=== PATIENT | male | born 1950 | race Caucasian/White ===

== ENCOUNTER 2021-11-08 17:33 | Observation (INO) | payer MEDICARE ==
[~2021-11-08] VITALS: Ht 172.7 cm; Wt 96.0 kg
[2021-11-08 17:53] LABS: BASOPHILS % (AUTO) 0 % (0-10); EOSINOPHILS % (AUTO) 0 % (0-10); HEMATOCRIT 41 % (40-54); HEMOGLOBIN 14.7 g/dL (13.3-17.7); LYMPHOCYTES # (AUTO) 2.1 10^3/uL (1.0-4.0); LYMPHOCYTES % (AUTO) 20 % (12-44); MEAN CORPUSCULAR HEMOGLOBIN 31 pg (25-34); MEAN CORPUSCULAR HGB CONC 36 g/dL (32-36); MEAN CORPUSCULAR VOLUME 88 fL (80-99); MEAN PLATELET VOLUME 10.1 fL (9.0-12.2); MONOCYTES # (AUTO) 0.7 10^3/uL (0.0-1.0); MONOCYTES % (AUTO) 7 % (0-12); NEUTROPHILS # (AUTO) 7.4 10^3/uL (1.8-7.8); NEUTROPHILS % (AUTO) 72 % (42-75); PLATELET COUNT 229 10^3/uL (130-400); WHITE BLOOD COUNT 10.2 10^3/uL (4.3-11.0)
--- NOTE | 2021-11-08 17:55 | ED Cardiac General ---
History of Present Illness General Chief Complaint: Cardiac/General Problems Stated Complaint: SOB,LIGHTHEADED, CHEST TIGHTNESS Source: patient Exam Limitations: no limitations (CAROLINE COBOS APRN) History of Present Illness Date Seen by Provider: Nov 08, 2021 Time Seen by Provider: 17:50 Initial Comments To ER with an abnormal sensation in his chest that he states is not pain or pressure, it just feels different. This began at about 1 PM today. He also feels a little lightheaded and short of breath. No history of this. He has a history of hypertension managed with lisinopril and hyperlipidemia managed with atorvastatin. Primary care is Dr. Irving. He does drink a sixpack of beer daily. Does not smoke. Timing/Duration: 4-6 hours Severity: moderate Prior CP/Workup: no prior chest pain [facility] NURSE: No [facility]PITAL NURSE: No Associated Systoms: No Nausea/Vomiting (CAROLINE COBOS APRN) Allergies and Home Medications Allergies Coded Allergies: No Known Drug Allergies (Unverified , 11/08/21) Patient Home Medication List Home Medication List Reviewed: Yes (CAROLINE COBOS APRN) Apixaban (Eliquis) 5 Mg Tablet, 5 MG PO BID Prescribed by: KATALINA AG on 11/09/21 1006 Atorvastatin Calcium (Lipitor) 10 Mg Tablet, 10 MG PO HS Prescribed by: KATALINA AG on 11/09/21 1006 Diltiazem HCl (Diltiazem 24Hr ER) 180 Mg Cap.er.24h, 180 MG PO DAILY Prescribed by: KATALINA AG on 11/09/21 1006 Lisinopril (Lisinopril) 10 Mg Tablet, 10 MG PO DAILY Prescribed by: KATALINA AG on 11/09/21 1006 Review of Systems Review of Systems Constitutional: see HPI EENTM: No Symptoms Reported Respiratory: No Symptoms Reported Cardiovascular: See HPI; Denies Chest Pain; Irregular Heart Rate, Lightheadedness, Palpitations Gastrointestinal: See HPI Genitourinary: No Symptoms Reported Musculoskeletal: no symptoms reported Skin: no symptoms reported Psychiatric/Neurological: No Symptoms Reported Endocrine: No Symptoms Reported Hematologic/Lymphatic: No Symptoms Reported (CAROLINE COBOS APRN) Physical Exam Vital Signs Capillary Refill : (CAROLINE COBOS APRN) Height, Weight, BMI Height: '" Weight: lbs. oz. kg; BMI Method: General Appearance: No Apparent Distress, WD/WN, Other (Hypertensive at 208/112) HEENT: PERRL/EOMI, TMs Normal Neck: Full Range of Motion, Normal Inspection Respiratory: No Accessory Muscle Use, No Respiratory Distress Cardiovascular: Irregularly Irregular, Tachycardia, Other (120-140 a-fib) Gastrointestinal: Non Tender, Soft Extremity: Normal Capillary Refill, Normal Inspection Neurologic/Psychiatric: Alert, Oriented x3 Skin: Normal Color, Warm/Dry (CAROLINE COBOS APRN) Progress/Results/Core Measures Results/Orders Lab Results Laboratory Tests Test 11/08/21 17:46 Range/Units White Blood Count 10.2 4.3-11.0 10^3/uL Red Blood Count 4.70 4.30-5.52 10^6/uL Hemoglobin 14.7 13.3-17.7 g/dL Hematocrit 41 40-54 % Mean Corpuscular Volume 88 80-99 fL Mean Corpuscular Hemoglobin 31 25-34 pg Mean Corpuscular Hemoglobin Concent 36 32-36 g/dL Red Cell Distribution Width 11.6 10.0-14.5 % Platelet Count 229 130-400 10^3/uL Mean Platelet Volume 10.1 9.0-12.2 fL Immature Granulocyte % (Auto) 1 % Neutrophils (%) (Auto) 72 42-75 % Lymphocytes (%) (Auto) 20 12-44 % Monocytes (%) (Auto) 7 0-12 % Eosinophils (%) (Auto) 0 0-10 % Basophils (%) (Auto) 0 0-10 % Neutrophils # (Auto) 7.4 1.8-7.8 10^3/uL Lymphocytes # (Auto) 2.1 1.0-4.0 10^3/uL Monocytes # (Auto) 0.7 0.0-1.0 10^3/uL Eosinophils # (Auto) 0.0 0.0-0.3 10^3/uL Basophils # (Auto) 0.0 0.0-0.1 10^3/uL Immature Granulocyte # (Auto) 0.1 0.0-0.1 10^3/uL Prothrombin Time 13.2 12.2-14.7 SEC INR Comment 1.0 0.8-1.4 Activated Partial Thromboplast Time 40 H 24-35 SEC Sodium Level 128 L 135-145 MMOL/L Potassium Level 4.0 3.6-5.0 MMOL/L Chloride Level 95 L 98-107 MMOL/L Carbon Dioxide Level 17 L 21-32 MMOL/L Anion Gap 16 H 5-14 MMOL/L Blood Urea Nitrogen 12 7-18 MG/DL Creatinine 1.05 0.60-1.30 MG/DL Estimat Glomerular Filtration Rate 75 BUN/Creatinine Ratio 11 Glucose Level 111 H 70-105 MG/DL Calcium Level 9.3 8.5-10.1 MG/DL Corrected Calcium 8.5-10.1 MG/DL Magnesium Level 2.2 1.6-2.4 MG/DL Total Bilirubin 0.8 0.1-1.0 MG/DL Aspartate Amino Transf (AST/SGOT) 41 H 5-34 U/L Alanine Aminotransferase (ALT/SGPT) 25 0-55 U/L Alkaline Phosphatase 69 40-136 U/L Myoglobin 40.3 10.0-92.0 NG/ML Troponin I < 0.028 <0.028 NG/ML B-Type Natriuretic Peptide 62.5 <100.0 PG/ML Total Protein 8.2 6.4-8.2 GM/DL Albumin 4.9 H 3.2-4.5 GM/DL Serum Alcohol 13 H <10 MG/DL (JULIUS FISHMAN DO) Departure Communication (Admissions) 1829-blood pressure is 198/89, heart rate 78 has converted to sinus. Cardizem drip was given as 10 mg bolus then 10 mg an hour and converted to sinus within 30 minutes after that. Drip was turned off I will give him Cardizem p.o. as we ll as an Eliquis and will see if some lorazepam brings down his blood pressure. 1945-has now converted back to atrial fibrillation though rate is controlled in the 70s and 80s. Cardizem drip has been off for an hour and he has had the Cardizem CD 180 mg tablet on board for about 1 hour now. After 1 mg of lorazepam his blood pressure has fallen from 190s/100 to a current 154/78. As such there may be some component of alcohol withdrawal here. Labs look good. Spoke with Dr. Rose will admit observation serial troponins he will consult in the morning will admit to medicine. Spoke with Dr. Ag and he agrees with this plan. We will use the CIWA protocol (CAROLINE COBOS APRN) Impression Primary Impression: Atrial fibrillation with rapid ventricular response Disposition: ADMITTED INPATIENT Condition: Stable Admissions Decision to Admit Reason: Admit from ER (General) Decision to Admit/Date: Nov 08, 2021 Time/Decision to Admit Time: 17:55 (CAROLINE COBOS APRN) Departure-Patient Inst. Referrals: ANNIE IRVING DO (PCP/Family) Primary Care Physician Scripts Atorvastatin Calcium (Lipitor) 10 Mg Tablet 10 MG PO HS for 30 Days, #30 TAB 0 Refills Prov: KATALINA AG MD 11/09/21 Lisinopril (Lisinopril) 10 Mg Tablet 10 MG PO DAILY for 30 Days, #30 TAB 0 Refills Prov: KATALINA AG MD 11/09/21 Apixaban (Eliquis) 5 Mg Tablet 5 MG PO BID for 30 Days, #60 TAB 0 Refills Prov: KATALINA AG MD 11/09/21 Diltiazem HCl (Diltiazem 24Hr ER) 180 Mg Cap.er.24h 180 MG PO DAILY for 30 Days, #30 CAP 0 Refills Prov: KATALINA AG MD 11/09/21 ATTENDING PHYSICIAN NOTE: I WAS PHYSICALLY PRESENT ER PHYSICIAN, BUT I WAS NOT INVOLVED IN ANY DECISION MAKING OR ANY CARE OF THIS PATIENT. (JULIUS FISHMAN DO) CAROLINE COBOS APRN Nov 08, 2021 17:55 JULIUS FISHMAN DO Nov 16, 2021 02:11
[2021-11-08] MEDS ORDERED: ASPIRIN 81 MG CHEW (CHILDREN'S ASA) PO ONE (18:00)
[2021-11-08] MEDS ORDERED: LACTATED RINGERS 1,000 ML IV SCH (18:00)
[2021-11-08] MEDS: dilTIAZem DRIP PRE-MIX 125 ML IV SCH (18:03)
[2021-11-08 18:04] LABS: ALBUMIN 4.9 GM/DL (3.2-4.5)
[2021-11-08 18:05] LABS: CHLORIDE 95 MMOL/L (98-107); SODIUM 128 MMOL/L (135-145)
[2021-11-08 18:06] LABS: CALCIUM 9.3 MG/DL (8.5-10.1)
[2021-11-08 18:07] LABS: GLUCOSE 111 MG/DL (70-105); TOTAL PROTEIN 8.2 GM/DL (6.4-8.2)
[2021-11-08 18:08] LABS: CARBON DIOXIDE 17 MMOL/L (21-32); PROTHROMBIN TIME PATIENT 13.2 SEC (12.2-14.7)
[2021-11-08 18:09] LABS: BILIRUBIN,TOTAL 0.8 MG/DL (0.1-1.0)
[2021-11-08 18:10] LABS: ALKALINE PHOSPHATASE 69 U/L (40-136)
[2021-11-08 18:11] LABS: CREATININE SERUM 1.05 MG/DL (0.60-1.30); GFR ESTIMATED 75
[2021-11-08 18:12] LABS: BUN/CREATININE RATIO 11
[2021-11-08 18:14] LABS: ALANINE AMINOTRANSFERASE 25 U/L (0-55); MAGNESIUM 2.2 MG/DL (1.6-2.4)
--- NOTE | 2021-11-08 18:16 | Diagnostic Imaging Report ---
INDICATION: Chest pain. COMPARISON: None available. FINDINGS: The lungs appear clear without focal infiltrate or consolidation. There are no findings of an effusion. There is no evidence of a pneumothorax. Heart size and mediastinal contours appear appropriate. Pulmonary vascularity appears within normal limits. There is no acute or suspicious osseous abnormality demonstrated. IMPRESSION: No radiographic evidence of an acute cardiopulmonary process. Dictated by: Dictated on workstation # [id number]
[2021-11-08] MEDS ORDERED: APIXABAN 5 MG (ELIQUIS) TABLET PO ONE (18:30)
[2021-11-08] MEDS ORDERED: LORazepam INJ 2 MG/ML (ATIVAN) VIAL IVP ONE (18:45)
[2021-11-08 21:30] VITALS: BP 175/92
[2021-11-08 21:45] VITALS: BP 178/126
[2021-11-08 22:00] VITALS: BP 151/122
[2021-11-08] MEDS ORDERED: CATHETER FLUSH 10 ML SYR IV PRN (22:00)
[2021-11-08 22:08] LABS: CHLORIDE 106 MMOL/L (98-107); POTASSIUM 3.9 MMOL/L (3.6-5.0); SODIUM 140 MMOL/L (135-145)
[2021-11-08 22:09] LABS: CALCIUM 9.7 MG/DL (8.5-10.1)
[2021-11-08 22:11] LABS: CARBON DIOXIDE 20 MMOL/L (21-32); GLUCOSE 112 MG/DL (70-105); TOTAL PROTEIN 8.4 GM/DL (6.4-8.2)
[2021-11-08 22:12] LABS: BILIRUBIN,TOTAL 0.7 MG/DL (0.1-1.0)
[2021-11-08 22:14] LABS: ALKALINE PHOSPHATASE 99 U/L (40-136); CREATININE SERUM 0.85 MG/DL (0.60-1.30); GFR ESTIMATED 92
[2021-11-08 22:15] VITALS: BP 169/91
[2021-11-08 22:15] LABS: BUN/CREATININE RATIO 13
[2021-11-08] MEDS ORDERED: 1/2 NS IV SOLUTION 1,000 ML IV PRN (22:15)
[2021-11-08] MEDS ORDERED: ONDANSETRON 4 MG/2 ML (SDV) Z0FRAN IV PRN (22:15)
[2021-11-08] MEDS ORDERED: SENNA W/DOCUSATE (SENOKOT S) TABLET PO PRN (22:15)
[2021-11-08] MEDS ORDERED: ANTACID SUSP 30 ML UDC (MYLANTA) PO PRN (22:15)
[2021-11-08] MEDS ORDERED: ONDANSETRON 4 MG (ZOFRAN) ORAL DISSOLVE TAB SL PRN (22:15)
[2021-11-08] MEDS ORDERED: LORazepam 1 MG (ATIVAN) TAB PO PRN (22:15)
[2021-11-08] MEDS ORDERED: D5 1/2 NS 1000 ML IV SOLUTION 1,000 ML IV PRN (22:15)
[2021-11-08] MEDS ORDERED: LORazepam INJ 2 MG/ML (ATIVAN) VIAL IV PRN (22:15)
[2021-11-08] MEDS ORDERED: LORazepam INJ 2 MG/ML (ATIVAN) VIAL IM/IV PRN (22:15)
[2021-11-08 22:17] LABS: ALANINE AMINOTRANSFERASE 17 U/L (0-55)
[2021-11-08 22:45] VITALS: BP 126/70
[2021-11-08] MEDS: CATHETER FLUSH 10 ML SYR IV SCH (23:20)
[2021-11-09] VITALS (10 sets, daily range): BP systolic 112–170; BP diastolic 53–92
[2021-11-09 04:45] LABS: BASOPHILS % (AUTO) 1 % (0-10); EOSINOPHILS # (AUTO) 0.1 10^3/uL (0.0-0.3); EOSINOPHILS % (AUTO) 2 % (0-10); HEMATOCRIT 36 % (40-54); HEMOGLOBIN 12.6 g/dL (13.3-17.7); LYMPHOCYTES # (AUTO) 2.1 10^3/uL (1.0-4.0); LYMPHOCYTES % (AUTO) 26 % (12-44); MEAN CORPUSCULAR HEMOGLOBIN 31 pg (25-34); MEAN CORPUSCULAR HGB CONC 35 g/dL (32-36); MEAN CORPUSCULAR VOLUME 89 fL (80-99); MEAN PLATELET VOLUME 10.4 fL (9.0-12.2); MONOCYTES # (AUTO) 0.6 10^3/uL (0.0-1.0); MONOCYTES % (AUTO) 8 % (0-12); NEUTROPHILS % (AUTO) 64 % (42-75); PLATELET COUNT 211 10^3/uL (130-400); WHITE BLOOD COUNT 7.9 10^3/uL (4.3-11.0)
[2021-11-09 05:00] LABS: PROTHROMBIN TIME PATIENT 14.1 SEC (12.2-14.7)
[2021-11-09 05:01] LABS: CHLORIDE 100 MMOL/L (98-107); POTASSIUM 4.1 MMOL/L (3.6-5.0); SODIUM 131 MMOL/L (135-145)
[2021-11-09 05:03] LABS: CALCIUM 8.7 MG/DL (8.5-10.1)
[2021-11-09 05:04] LABS: GLUCOSE 95 MG/DL (70-105); TRIGLYCERIDES 144 MG/DL (<150); VLDL CHOLESTEROL 29 MG/DL (5-40)
[2021-11-09 05:05] LABS: CARBON DIOXIDE 21 MMOL/L (21-32)
[2021-11-09 05:07] LABS: CREATININE SERUM 1.04 MG/DL (0.60-1.30); GFR ESTIMATED 76
[2021-11-09 05:08] LABS: BUN/CREATININE RATIO 12
[2021-11-09 05:09] LABS: CHOLESTEROL 118 MG/DL (< 200)
[2021-11-09 05:10] LABS: HDL CHOLESTEROL 34 MG/DL (40-60)
[2021-11-09] MEDS: CATHETER FLUSH 10 ML SYR IV SCH (06:39)
[2021-11-09] MEDS: dilTIAZem DRIP PRE-MIX 125 ML IV SCH (06:40)
[2021-11-09] MEDS ORDERED: MULTIVIT W/MINERALS TAB (THERAGRAN M) PO SCH (07:00)
[2021-11-09] MEDS ORDERED: THIAMINE 100 MG (VITAMIN B-1) TAB PO SCH (07:00)
[2021-11-09] MEDS ORDERED: PANTOPRAZOLE 40 MG (PROTONIX) TAB PO SCH (07:00)
[2021-11-09 07:11] LABS: BILIRUBIN,URINE NEGATIVE (NEGATIVE); CLARITY,URINE CLEAR; COLOR,URINE YELLOW; GLUCOSE, URINE (UA) NEGATIVE (NEGATIVE); KETONES,URINE NEGATIVE (NEGATIVE); LEUKOCYTE ESTERASE ,URINE NEGATIVE (NEGATIVE); NITRITE,URINE NEGATIVE (NEGATIVE); PROTEIN,URINE NEGATIVE (NEGATIVE)
[2021-11-09 07:23] LABS: BACTERIA,URINE NEGATIVE /HPF
[2021-11-09] MEDS ORDERED: ASPIRIN 81 MG CHEW (CHILDREN'S ASA) PO SCH (09:00)
[2021-11-09] MEDS ORDERED: MAGNESIUM OXIDE (MAG-OX)400 MG TAB PO SCH (09:00)
[2021-11-09] MEDS ORDERED: FOLIC ACID 1 MG TAB PO SCH (09:00)
[2021-11-09] MEDS ORDERED: APIXABAN 5 MG (ELIQUIS) TABLET PO SCH (09:00)
--- NOTE | 2021-11-09 09:09 | Consultation-Cardiology ---
HPI-Cardiology Cardiology Consultation Date of Consultation 11/09/21 Date of Admission Time Seen by Provider: 09:03 Indication: Atrial fibrillation HPI 71 years old gentleman with history of hypertension, hyperlipidemia, drinks about 6 packs of beer daily. Did not feel right, reported some discomfort in the chest. Feeling lightheaded. Mild shortness of breath. Came into the emergency room and noted to have paroxysmal atrial fibrillation and was in and out of atrial fibrillation. Patient was started on Cardizem drip, converted to sinus rhythm then had few breakthrough atrial fibrillation episodes. On my evaluation he was in sinus rhythm. Denied any previous cardiac history. No chest pain previously. We discussed the possibility of keeping him and do work-up as an outpatient, patient preferred to go home and have the work-up done as an outpatient Home Medications & Allergies Allergies: Coded Allergies: No Known Drug Allergies (Unverified , 11/08/21) Home Medication List Reviewed: Yes [id number] Hx Patient Social History Marital Status: Employed/Student: retired Smoking Status: Former Smoker Have you traveled recently?: No Alcohol Use?: Yes Immunizations Up To Date Date of Influenza Vaccine: Jun 20, 2021 Past Medical History Discussed below Family Medical History Family Medical Hx Noncontributory Review of Systems-General Review of Systems Constitutional: see HPI EENTM: see HPI, no symptoms reported Respiratory: see HPI, dyspnea on exertion Cardiovascular: see HPI, chest pain (Atypical); No edema, No Hx of Intervention, No palpitations, No syncope, No vascular heart diseas, No other Gastrointestinal: no symptoms reported, see HPI Genitourinary: no symptoms reported, see HPI Musculoskeletal: no symptoms reported, see HPI Skin: no symptoms reported, see HPI Psychiatric/Neurological: No Symptoms Reported, See HPI Reviewed Test Results Reviewed Test Results Lab Laboratory Tests Test 11/08/21 17:46 11/08/21 21:13 11/09/21 04:16 11/09/21 07:04 Range/Units White Blood Count 10.2 7.9 4.3-11.0 10^3/uL Red Blood Count 4.70 4.07 L 4.30-5.52 10^6/uL Hemoglobin 14.7 12.6 L 13.3-17.7 g/dL Hematocrit 41 36 L 40-54 % Mean Corpuscular Volume 88 89 80-99 fL Mean Corpuscular Hemoglobin 31 31 25-34 pg Mean Corpuscular Hemoglobin Concent 36 35 32-36 g/dL Red Cell Distribution Width 11.6 11.8 10.0-14.5 % Platelet Count 229 211 130-400 10^3/uL Mean Platelet Volume 10.1 10.4 9.0-12.2 fL Immature Granulocyte % (Auto) 1 1 % Neutrophils (%) (Auto) 72 64 42-75 % Lymphocytes (%) (Auto) 20 26 12-44 % Monocytes (%) (Auto) 7 8 0-12 % Eosinophils (%) (Auto) 0 2 0-10 % Basophils (%) (Auto) 0 1 0-10 % Neutrophils # (Auto) 7.4 5.0 1.8-7.8 10^3/uL Lymphocytes # (Auto) 2.1 2.1 1.0-4.0 10^3/uL Monocytes # (Auto) 0.7 0.6 0.0-1.0 10^3/uL Eosinophils # (Auto) 0.0 0.1 0.0-0.3 10^3/uL Basophils # (Auto) 0.0 0.0 0.0-0.1 10^3/uL Immature Granulocyte # (Auto) 0.1 0.0 0.0-0.1 10^3/uL Prothrombin Time 13.2 14.1 12.2-14.7 SEC INR Comment 1.0 1.0 0.8-1.4 Activated Partial Thromboplast Time 40 H 44 H 24-35 SEC Sodium Level 128 L 140 131 L 135-145 MMOL/L Potassium Level 4.0 3.9 4.1 3.6-5.0 MMOL/L Chloride Level 95 L 106 100 98-107 MMOL/L Carbon Dioxide Level 17 L 20 L 21 21-32 MMOL/L Anion Gap 16 H 14 10 5-14 MMOL/L Blood Urea Nitrogen 12 11 12 7-18 MG/DL Creatinine 1.05 0.85 1.04 0.60-1.30 MG/DL Estimat Glomerular Filtration Rate 75 92 76 BUN/Creatinine Ratio 11 13 12 Glucose Level 111 H 112 H 95 70-105 MG/DL Calcium Level 9.3 9.7 8.7 8.5-10.1 MG/DL Corrected Calcium 8.5-10.1 MG/DL Magnesium Level 2.2 1.6-2.4 MG/DL Total Bilirubin 0.8 0.7 0.1-1.0 MG/DL Aspartate Amino Transf (AST/SGOT) 41 H 16 5-34 U/L Alanine Aminotransferase (ALT/SGPT) 25 17 0-55 U/L Alkaline Phosphatase 69 99 40-136 U/L Myoglobin 40.3 10.0-92.0 NG/ML Troponin I < 0.028 < 0.028 < 0.028 <0.028 NG/ML B-Type Natriuretic Peptide 62.5 <100.0 PG/ML Total Protein 8.2 8.4 H 6.4-8.2 GM/DL Albumin 4.9 H 5.0 H 3.2-4.5 GM/DL Serum Alcohol 13 H < 10 <10 MG/DL Triglycerides Level 144 <150 MG/DL Cholesterol Level 118 < 200 MG/DL LDL Cholesterol Direct 64 1-129 MG/DL VLDL Cholesterol 29 5-40 MG/DL HDL Cholesterol 34 L 40-60 MG/DL Urine Color YELLOW Urine Clarity CLEAR Urine pH 6.0 5-9 Urine Specific [place] 1.010 L 1.016-1.022 Urine Protein NEGATIVE NEGATIVE Urine Glucose (UA) NEGATIVE NEGATIVE Urine Ketones NEGATIVE NEGATIVE Urine Nitrite NEGATIVE NEGATIVE Urine Bilirubin NEGATIVE NEGATIVE Urine Urobilinogen 0.2 < = 1.0 MG/DL Urine Leukocyte Esterase NEGATIVE NEGATIVE Urine RBC (Auto) NEGATIVE NEGATIVE Urine RBC NONE /HPF Urine WBC NONE /HPF Urine Crystals NONE /LPF Urine Bacteria NEGATIVE /HPF Urine Casts NONE /LPF Urine Mucus NEGATIVE /LPF Urine Culture Indicated NO Physical Exam Physical Exam Vital Signs Vital Signs - First Documented 11/08/21 17:40 Temp 36.3 Pulse 123 Resp 22 B/P (MAP) 210/115 (146) Pulse Ox 99 O2 Delivery Room Air Capillary Refill : Less Than 3 Seconds Height, Weight, BMI Height: '" Weight: lbs. oz. kg; 32.18 BMI Method: General Appearance: No Apparent Distress, WD/WN, Other (Hypertensive at 208/112) Eyes: Bilateral Eye Normal Inspection, Bilateral Eye PERRL, Bilateral Eye EOMI HEENT: PERRL/EOMI, TMs Normal Neck: Full Range of Motion, Normal Inspection Respiratory: No Accessory Muscle Use, No Respiratory Distress Cardiovascular: Regular Rate, Rhythm, No Edema, No Gallop, No JVD, No Murmur, Normal Peripheral Pulses, Other Gastrointestinal: Normal Bowel Sounds, Non Tender, Soft Back: Normal Inspection, No CVA Tenderness, No Vertebral Tenderness Extremity: Normal Capillary Refill, Normal Inspection Neurologic/Psychiatric: Alert, Oriented x3 Skin: Normal Color, Warm/Dry Lymphatic: No Adenopathy A/P-Cardiology Admission Diagnosis Paroxysmal atrial fibrillation Shortness of breath Hypertension Hyperlipidemia Assessment/Plan Paroxysmal atrial fibrillation, unknown duration, unknown etiology. Could be secondary to alcohol. I will evaluate TSH level and 2D echo I discussed with the patient the need for a stress test, patient prefer to have it done as an outpatient. Started on Cardizem and tolerating it well. Continue on lisinopril [id number] score 3, yearly risk of stroke without oral anticoagulation is 3%, started on Eliquis 5 mg twice daily. Shortness of breath, atypical chest discomfort, probably secondary to atrial fibrillation, planning to do stress test as an outpatient. EKG and cardiac enzymes did not show any acute abnormality Hypertension, maintained on lisinopril, adding Cardizem and evaluate tolerance and response Hyperlipidemia, maintained on atorvastatin Alcoholism, educated on avoiding alcohol. I discussed with the patient the need for a stress test which will help in identifying the appropriate antiarrhythmic medication to use. Patient preferred to have it done as an outpatient. Okay for discharge on Cardizem and Eliquis in addition to lisinopril and atorvastatin after having the echo done. Clinical Quality Measures AMI/AHF: ASA po Prior to arrival: KIMBERLY Robles MD Nov 09, 2021 09:09
[2021-11-09] MEDS ORDERED: ATOR10TA PO (10:06)
[2021-11-09] MEDS ORDERED: APIX5TAB PO (10:06)
[2021-11-09] MEDS ORDERED: DILT180C85 PO (10:06)
[2021-11-09] MEDS ORDERED: LISI10TA25 PO (10:06)
--- NOTE | 2021-11-09 10:14 | Discharge Summary ---
Discharge Summary Hospital Course Problems/Dx: (1) Atrial fibrillation with rapid ventricular response Status: Acute Hospital Course Date of Admission: Nov 08, 2021 at 19:45 Admission Diagnosis : AFib with RVR Family Physician/Provider: Randall Irving DO Date of Discharge: 11/09/21 Discharge Diagnosis: AFib with RVR Hospital Course: Cholo David is a 71 year old male with PMH HTN, HLD, alcohol abuse, obesity, who was admitted with new onset atrial fibrillation with rapid ventricular response. Cardiology was consulted and assisted with his care. He was started on IV Cardizem and his rate was controlled. He was transitioned to oral Cardizem which he will continue as an outpatient. He was also started on Eliquis for stroke prophylaxis. He was encouraged to discontinue alcohol use. He should follow up with Dr. Rose in a few weeks. He has an appointment scheduled with Dr. Irving in a few days. He was discharged home in stable condition. Labs and Pending Lab Test: Laboratory Tests 11/08/21 17:46: White Blood Count 10.2, Red Blood Count 4.70, Hemoglobin 14.7, Hematocrit 41, Mean Corpuscular Volume 88, Mean Corpuscular Hemoglobin 31, Mean Corpuscular Hemoglobin Concent 36, Red Cell Distribution Width 11.6, Platelet Count 229, Mean Platelet Volume 10.1, Immature Granulocyte % (Auto) 1, Neutrophils (%) (Auto) 72, Lymphocytes (%) (Auto) 20, Monocytes (%) (Auto) 7, Eosinophils (%) (Auto) 0, Basophils (%) (Auto) 0, Neutrophils # (Auto) 7.4, Lymphocytes # (Auto) 2.1, Monocytes # (Auto) 0.7, Eosinophils # (Auto) 0.0, Basophils # (Auto) 0.0, Immature Granulocyte # (Auto) 0.1, Prothrombin Time 13.2, INR Comment 1.0, Activated Partial Thromboplast Time 40H, Sodium Level 128L, Potassium Level 4.0, Chloride Level 95L, Carbon Dioxide Level 17L, Anion Gap 16H, Blood Urea Nitrogen 12, Creatinine 1.05, Estimat Glomerular Filtration Rate 75, BUN/Creatinine Ratio 11, Glucose Level 111H, Calcium Level 9.3, Corrected Calcium , Magnesium Level 2.2, Total Bilirubin 0.8, Aspartate Amino Transf (AST/SGOT) 41H, Alanine Aminotransferase (ALT/SGPT) 25, Alkaline Phosphatase 69, Myoglobin 40.3, Troponin I < 0.028, B-Type Natriuretic Peptide 62.5, Total Protein 8.2, Albumin 4.9H, Serum Alcohol 13H 11/08/21 21:13: Sodium Level 140, Potassium Level 3.9, Chloride Level 106, Carbon Dioxide Level 20L, Anion Gap 14, Blood Urea Nitrogen 11, Creatinine 0.85, Estimat Glomerular Filtration Rate 92, BUN/Creatinine Ratio 13, Glucose Level 112H, Calcium Level 9.7, Corrected Calcium , Total Bilirubin 0.7, Aspartate Amino Transf (AST/SGOT) 16, Alanine Aminotransferase (ALT/SGPT) 17, Alkaline Phosphatase 99, Troponin I < 0.028, Total Protein 8.4H, Albumin 5.0H, Serum Alcohol < 10 11/09/21 04:16: White Blood Count 7.9, Red Blood Count 4.07L, Hemoglobin 12.6L, Hematocrit 36L, Mean Corpuscular Volume 89, Mean Corpuscular Hemoglobin 31, Mean Corpuscular Hemoglobin Concent 35, Red Cell Distribution Width 11.8, Platelet Count 211, Mean Platelet Volume 10.4, Immature Granulocyte % (Auto) 1, Neutrophils (%) (Auto) 64, Lymphocytes (%) (Auto) 26, Monocytes (%) (Auto) 8, Eosinophils (%) (Auto) 2, Basophils (%) (Auto) 1, Neutrophils # (Auto) 5.0, Lymphocytes # (Auto) 2.1, Monocytes # (Auto) 0.6, Eosinophils # (Auto) 0.1, Basophils # (Auto) 0.0, Immature Granulocyte # (Auto) 0.0, Prothrombin Time 14.1, INR Comment 1.0, Activated Partial Thromboplast Time 44H, Sodium Level 131L, Potassium Level 4.1, Chloride Level 100, Carbon Dioxide Level 21, Anion Gap 10, Blood Urea Nitrogen 12, Creatinine 1.04, Estimat Glomerular Filtration Rate 76, BUN/Creatinine Ratio 12, Glucose Level 95, Calcium Level 8.7, Troponin I < 0.028, Triglycerides Level 144, Cholesterol Level 118, LDL Cholesterol Direct 64, VLDL Cholesterol 29, HDL Cholesterol 34L, Thyroid Stimulating Hormone (TSH) 1.05, HIV (1&2) Ag and Ab Screen Referral [Pending] 11/09/21 07:04: Urine Color YELLOW, Urine Clarity CLEAR, Urine pH 6.0, Urine Specific [place] 1.010L, Urine Protein NEGATIVE, Urine Glucose (UA) NEGATIVE, Urine Ketones NEGATIVE, Urine Nitrite NEGATIVE, Urine Bilirubin NEGATIVE, Urine Urobilinogen 0.2, Urine Leukocyte Esterase NEGATIVE, Urine RBC (Auto) NEGATIVE, Urine RBC NONE, Urine WBC NONE, Urine Crystals NONE, Urine Bacteria NEGATIVE, Urine Casts NONE, Urine Mucus NEGATIVE, Urine Culture Indicated NO Home Meds Active Lipitor (Atorvastatin Calcium) 10 Mg Tablet 10 Mg PO HS 30 Days Lisinopril 10 Mg Tablet 10 Mg PO DAILY 30 Days Eliquis (Apixaban) 5 Mg Tablet 5 Mg PO BID 30 Days Diltiazem 24Hr ER (Diltiazem HCl) 180 Mg Cap.er.24h 180 Mg PO DAILY 30 Days Assessment/Pt Instructions Take medications as prescribed. Begin taking Cardizem and Eliquis for atrial fibrillation. Avoid alcohol use. Follow up with Dr. Irving as scheduled. Follow up with Dr. Rose in a few weeks. Return with worsening chest pain, shortness of breath, uncontrolled bleeding, or if you feel like you are getting worse. Discharge Planning: >30 minutes discharge planning Discharge Instructions Discharge Diet: Low Sodium Diet Activity as Tolerated: Yes Discharge Physical Examination Vital Signs Vital Signs Date Time Temp Pulse Resp B/P (MAP) Pulse Ox O2 Delivery O2 Flow Rate FiO2 11/09/21 08:02 36.9 63 12 152/81 (104) 97 Room Air General Appearance: No Apparent Distress, Obese HEENT: PERRL/EOMI, Pharynx Normal Respiratory: Lungs Clear, Normal Breath Sounds, No Respiratory Distress Cardiovascular: Regular Rate, Rhythm, No Edema, No Murmur Gastrointestinal: Normal Bowel Sounds, Non Tender, Soft Extremity: Normal Inspection, Non Tender, No Pedal Edema Skin: Normal Color, Warm/Dry Neurologic/Psychiatric: Alert, Oriented x3, No Motor/Sensory Deficits, Normal Mood/Affect Allergies: Coded Allergies: No Known Drug Allergies (Unverified , 11/08/21) Copy Copies To 1: RANDALL IRVING DO Discharge Summary Date of Admission Nov 08, 2021 at 19:45 Date of Discharge Discharge Date: Nov 09, 2021 Discharge Time: 09:50 Admission Diagnosis AFib with RVR Consults/Procedures Consulations Cardiology Discharge Diagnosis (1) Atrial fibrillation with rapid ventricular response Status: Acute Clinical Quality Measures AMI/AHF: ASA po Prior to arrival: KATALINA Allen MD Nov 09, 2021 10:14
== END 2021-11-09 11:07 | disposition home or self-care (01) ==
LOC: ER 17:37 → ICU 19:45
PROVIDERS: ADMIT Internal Medicine; ATTEND Internal Medicine
DX: I48.0 Paroxysmal atrial fibrillation (principal); I10 Essential (primary) hypertension; E78.5 Hyperlipidemia, unspecified; E66.9 Obesity, unspecified; F10.20 Alcohol dependence, uncomplicated; Y90.9 Presence of alcohol in blood, level not specified; Z87.891 Personal history of nicotine dependence; Z68.32 Body mass index [BMI] 32.0-32.9, adult; Z79.899 Other long term (current) drug therapy
CPT/HCPCS: 71045; 80048; 80053; 80061; 81000; 83735; 83874; 83880; 84443; 84484 ×2; 85025 ×2; 85610 ×2; 85730 ×2; 86703; 93005 ×2; 93041; 93306; 96361; 96365; 96375; 99284; G0378; G0480; 36415; 80320

== ENCOUNTER 2021-12-01 09:30 | Day surgery (SDC) | payer MEDICARE ==
[~2021-12-01] VITALS: Ht 172 cm; Wt 83.7 kg
[~2021-12-01 09:30] MED LIST: APIX5TAB PO; ATOR10TA PO; DILT180C85 PO; LISI10TA25 PO
[2021-12-01] MEDS ORDERED: LIDOCAINE 1% INJ 50 ML (XYLOCAINE) VIAL ONE (09:43)
--- NOTE | 2021-12-01 10:15 | Implantation of Loop Monitor ---
Implant of Loop Monitior IMPLANTATION OF LOOP MONITOR REPORT DATE OF PROCEDURE: 12/01/21 PREOP DIAGNOSIS: Paroxysmal atrial fibrillation POSTOP DIAGNOSIS: Paroxysmal atrial fibrillation PROCEDURE DETAILS: The patient is a 71 male with history of paroxysmal atrial fibrillation requiring long-term surveillance. Therefore implantable loop recorder was discussed and agreed with the patient. Informed consent was taken. All risks and complications were discussed at length. The patient was draped and prepped in the usual sterile fashion. Local anesthesia was lidocaine, which was given in the substernal area close to the 4th intercostal space. Loop monitor [employer] with serial number [id number] was implanted according to the protocol. Steri- Strips were placed at the end of the procedure. There were no complications and the patient tolerated the procedure well. ANESTHESIA: Local anesthesia with lidocaine. COMPLICATIONS: None CONTRAST/FLUOROSCOPY: None CONCLUSION: Successful implantation of loop monitor with no complication FINAL DIAGNOSIS: Paroxysmal atrial fibrillation Palpitation Hypertension KIMBERLY OSORIO MD Dec 01, 2021 10:15
[2021-12-01 10:30] VITALS: BP 169/70
[2021-12-01] MEDS ORDERED: LIDOCAINE 1% INJ 50 ML (XYLOCAINE) VIAL IJ ONE (10:45)
== END 2021-12-01 10:41 | disposition home or self-care (01) ==
LOC: CATH 09:30
PROVIDERS: ATTEND Internal Medicine Cardiovascular Disease
DX: I48.0 Paroxysmal atrial fibrillation (principal); I48.92 Unspecified atrial flutter; E78.2 Mixed hyperlipidemia; I10 Essential (primary) hypertension; Z79.01 Long term (current) use of anticoagulants; Z79.899 Other long term (current) drug therapy; Z87.891 Personal history of nicotine dependence; Z87.898 Personal history of other specified conditions; Z72.89 Other problems related to lifestyle
CPT/HCPCS: 33285; C1764

== ENCOUNTER → 2021-12-22 | Outpatient (CLI) | payer MEDICARE ==
[~2021-12-22] VITALS: Ht 172 cm; Wt 80.0 kg
[~2021-12-22] MED LIST changes: +CATHETER FLUSH 10 ML SYR IVP PRN
[2021-12-22 09:14] VITALS: BP 182/66
--- NOTE | 2021-12-22 11:10 | Cardiology Stress Test Report ---
Stress Test Report Date of Procedure/Referring: Date of Procedure: Dec 22, 2021 PCP Kimberly Rose MD Admitting Physician Randall Mabry DO Indications: HTN Baseline Heart Rate: 49 Baseline Blood Pressure: Blood Pressure Systolic: 182 Blood Pressure Diastolic: 66 Vital Signs Date Time Temp Pulse Resp B/P (MAP) Pulse Ox O2 Delivery O2 Flow Rate FiO2 12/22/21 09:14 49 182/66 (104) Baseline Vital Signs Vital Signs Date Time Temp Pulse Resp B/P (MAP) Pulse Ox O2 Delivery O2 Flow Rate FiO2 12/22/21 09:14 49 182/66 (104) Baseline EKG: Baseline EKG: Sinus bradycardia Summary: After explaining the procedure and details to the patient, he signed the consent and was brought to the stress nuclear laboratory. Patient exercised on standard Rupesh protocol, EKG, heart rate and blood pressure were monitored continuously, resting and stress doses of radio tracer were injected, imaging was acquired and reviewed in the short axis, horizontal long axis and vertical long axis views Patient was able to exercise for a total of 4 minutes on Rupesh protocol, METs 5.8 Maximum heart rate 136 Maximum blood pressure 252/79 Stress EKG, Minimal nondiagnostic changes Recovery EKG, Return to baseline TID: 0.86 SSS: 2 SDS: 2 EF: 72 Conclusion: 1. Good exercise tolerance for a total of 4 minutes on standard Ruepsh protocol, 5.8 METS achieving 92% of maximal expected heart rate 2. Appropriate heart rate response to exercise with severe hypertensive response to exercise peak blood pressure 252/79 return to baseline during recovery 3. Baseline sinus bradycardia with appropriate heart rate response to exercise. 4. Minimal nondiagnostic EKG changes with exercise return to baseline during recovery 5. Diaphragmatic attenuation with typical male pattern with no significant ischemia or infarction on SPECT images 6. Normal left ventricular size, EF 72% KIMBERLY ROSE MD Dec 22, 2021 11:10
== END ==
LOC: CARD 07:45
PROVIDERS: ATTEND Internal Medicine Cardiovascular Disease
DX: I10 Essential (primary) hypertension (principal); I25.10 Atherosclerotic heart disease of native coronary artery without angina pectoris
CPT/HCPCS: 78452; 93017; A9502